=== PATIENT | male | born 1970 | race Caucasian/White ===

== ENCOUNTER 2022-01-27 09:03 | Day surgery (SDC) | payer OTHER, SELFPAY ==
[2022-01-27] VITALS (19 sets, daily range): BP systolic 116–149; BP diastolic 77–100; PULSE 64–98; RESP 16; TEMP 36–36.7; O2SAT 91–99; BMI 39.3
[2022-01-27] MEDS: fentaNYL 100 MCG/2 ML inj IVP (09:18)
[2022-01-27] MEDS: MIDAZOLAM HCL 1 MG/ML inj IVP (09:18)
[2022-01-27] MEDS: LACTATED RINGERS 1000 ML 1,000 ML 100 ML IV ×2 (09:30→12:21)
--- NOTE | 2022-01-27 09:57 | CRLHL7_ITS ---
For Patients: As a result of the Century Cures Act, medical imaging exams and procedure reports are released immediately into your electronic medical record. You may view this report before your referring provider. If you have questions, please contact your health care provider. INDICATION: Fracture. TECHNIQUE: Intraoperative C-arm fluoroscopy. IMPRESSION: Intraoperative C-arm fluoroscopy was provided. Fluoroscopy time 1 minutes 30 seconds. Four images were captured. Dictated by Cody Hawkins MD @ 01/27/2022 9:12:49 PM (Electronically Signed)
[2022-01-27] MEDS: CEFAZOLIN 2 GM INJ IVP (10:20)
--- NOTE | 2022-01-27 10:34 | W.PM.NB ---
Nerve Block Nerve Block Date Seen: 01/27/22 Type of block requested by surgeon for post-operative analgesia: popliteal Side: left Time out performed: Yes Verification of patient name: Yes Verification of date of : Yes Site marking: site marked Name of person performing procedure: Stas Continuous monitoring Was continuous monitoring of O2 sat, B/P, museum registrar, recorded every 15 minutes?: Yes Procedure Checklist: sterile prep, needles and gloves Ultrasound guided. Images saved: Yes Medications given in 5ml increments after negative aspiration: Ropivicaine %: 0.5 mL: 20 Needle gauge: 22 Patient tolerated procedure well: Yes Additional comments: Needle noted adjacent to nerve Block Charges Block Charge (with Pro Fee): Sciatic Nerve Use of Ultrasound Machine for Block: Yes- US Guidance/pain block
--- NOTE | 2022-01-27 10:35 | W.PM.NB ---
Nerve Block Nerve Block Date Seen: 01/27/22 Type of block requested by surgeon for post-operative analgesia: adductor canal Side: left Time out performed: Yes Verification of patient name: Yes Verification of date of : Yes Site marking: site marked Name of person performing procedure: Stas Continuous monitoring Was continuous monitoring of O2 sat, B/P, equipment monitor phototypesetting, recorded every 15 minutes?: Yes Procedure Checklist: sterile prep, needles and gloves Ultrasound guided. Images saved: Yes Medications given in 5ml increments after negative aspiration: Ropivicaine %: 0.5 mL: 20 Needle gauge: 22 Patient tolerated procedure well: Yes Additional comments: Needle noted adjacent to nerve Block Charges Block Charge (with Pro Fee): Femoral Nerve Use of Ultrasound Machine for Block: Yes- US Guidance/pain block
--- NOTE | 2022-01-27 14:25 | W.ANESCHARGE ---
Anesthesia Charges Start Date/Time Anesthesia Start Date: 01/27/22 Anesthesia Start Time: 10:05 Stop Date/Time Anesthesia Stop Date: 01/27/22 Anesthesia Stop Time: 14:22 Summary Emergency: No
--- NOTE | 2022-01-27 14:36 | W.ANESCHARGE ---
Anesthesia Charges Start Date/Time Anesthesia Start Date: 01/27/22 Anesthesia Start Time: 10:05 Stop Date/Time Anesthesia Stop Date: 01/27/22 Anesthesia Stop Time: 14:22 Summary Emergency: No
[2022-01-27] MEDS: METOCLOPRAMIDE HCL 5 MG/ML INJ 10 MG IVP (15:19)
--- NOTE | 2022-01-27 16:23 | P.GSOP_ITS ---
Operative Note Date of procedure: 01/27/22 Type of Procedure: 1. ORIF trimalleolar ankle fracture left 2. ORIF anterior lateral distal tibial plafond fracture left 3. open debridement anterior lateral talar dome fracture left 4. ORIF distal ankle syndesmosis disruption left Procedure Description: After discussing the risks and benefits of the procedure, the patient signed informed consent.? The operative site was marked. Anesthesia performed a preoperative popliteal and adductor block and the patient was brought to the operating room and placed on the operating table in supine position.? Care was taken to pad the patient's pressure points.?? The patient was then [intubated/given sedation] by anesthesia.?? The operative site was then prepped and draped in the usual sterile fashion.? A thigh tourniquet was placed. A time-out was then performed. left limb was exsanguinated and the tourniquet. Due to the severity of the lateral injury I decided to start medially to give us a stable area to work from. Linear incisions made over the medial malleolus. Incision was carried down through skin and subcutaneous tissues. Significant amount of periosteal stripping was noted at the fracture site. Periosteum reflected away from the fracture site. Hematoma was debrided from the fracture. The fracture fragment was displaced distally and the medial talar dome inspected and no lesions noted. Reduction forceps was then applied pulling the medial malleolar fragment into anatomic alignment. This appeared to be perfect both under direct visualization and under C-arm. A guide pin was placed anterior to the reduction forceps and driven across the fracture site taking great care to avoid the articular surface. Second guide pin was placed posterior and parallel to the 1st. C-arm confirmed excellent position. 55 mm 4.0 cannulated long threaded screws were placed using standard technique. Excellent compression obtained. Reduction forceps removed and the fracture remained anatomically aligned. We thoroughly irrigated with normal sterile saline. The fascia and periosteum repaired with 3-0 and 4-0 Vicryl and the skin closed with herberth. A linear incision was then made laterally over the fibula. Incision was placed slightly anterior to allow visualization of talar fragment and distal tibial fragment. Incision was carried down through skin subcutaneous tissues. Periosteum was incised and reflected away from the distal fibula. Multiple fracture fragments were noted. There were 3 main fracture fragments that would support fixation. There was a distal anterior, a posterior lateral and the proximal fibula. There was also a distal posterior fragment and 2 anterior mid shaft fragments. Additionally there was 1 intra-articular fragment that was removed. We started by identifying the anterior lateral distal tibia fracture fragment. Periosteum and hematoma were stripped away from the fragment. the fracture fragment was rotated into alignment and fixated with a 2.4 mm cannulated screw. Anatomic alignment of the articular surface was directly visualized. Next I inspected the talar dome and identified the fracture fragment from the anterior lateral aspect. It was quite distal and was too small to support fixation. The fragment was removed in total. the joint was irrigated with normal sterile saline. next we used a curette and suction to remove the hematoma from the fibular fracture fragments. Using reduction forceps central posterior lateral fracture fragment was reduced to the proximal fibula. This appeared perfectly anatomic and a 2.7 mm cortical screw was placed across the fracture using standard lag technique. with removal of the reduction clamp the fracture remained anatomic. The distal anterior fragment was then reduced onto the lateral posterior fragment. C-arm confirmed anatomic alignment. A 2.7 mm cortical screws placed from anterior distal to posterior proximal increase the 2 fragments together. C-arm images confirmed roman catholic of the fibula anatomic alignment and rotation. pre contoured distal fibular plate was then applied laterally. The proximal plate was anchored to the bone with a 3.5mm nonlocking screw in the slotted portion of the plate. with the plate anchored to bone three 2.7 mm locking screws were placed distally to incorporate all distal fracture fragments. a 2.7 mm nonlocking screw was placed in the distal most screw hole to incorporate an additional fracture fragment at the distal fibula. Two additional 3.5 mm locking screws were placed in the proximal most screw holes. with the fibula now stabilized and anatomic stress views of the syndesmosis were performed with medial clear space gapping. A Arthrex tight rope was then placed using standard technique through the fibular plate into the tibia. With the ankle dorsiflexed the tight rope was cinched tight. Stress views were taken again with no medial clear space widening. 2 mL of cancellous allograft bone was packed into the void in the anterior fibula just proximal to the joint level. All remaining fracture fragments were in anatomic alignment and did not require additional fixation. All wounds were irrigated fully with normal sterile saline. Periosteum and deep fascia were closed with 3-0 Vicryl. subcutaneous tissues reapproximated with 3-0 Vicryl and 4-0 Vicryl. Skin reapproximated with herberth. tourniquet was released prior to closure. All bleeding vessels cauterized. Sterile dressing was then applied. Well-padded [id number] plaster splint applied. The patient was then woken and transported to the recovery area in stable condition. The patient tolerated the procedure well. this fracture was above and beyond normal fractures and required additional time and expertise for fixation. written and verbal postop instructions given. Oxycodone and Vistaril given for pain. He was discharged per Anesthesia. Strict nonweightbearing. Follow up in clinic in 1 week. Implants: Arthrex distal fibula pre contoured locking plate x1. 2.7 mm locking screws x3. 2.7 mm non-locking screw x3. 3.5 mm nonlocking screw x1. 3.5 mm locking screw x2. Arthrex tight rope x1. 4.0 cannulated screws x2. 2.4 mm cannulated screw times 1. Anesthesia: GETA Surgeon: Asaf Gutierrez DPM Estimated blood loss (mL): 20 Condition: stable Disposition: PACU
--- NOTE | 2022-01-27 17:23 | SUR.PHASEII ---
Patient tolerated water and apple juice, patient performed multiple transfers from bed to chair, wheelchair to toilet, toilet to wheelchair and into his personal truck independently upon discharge. Patient voided prior to discharge. Patient and verbally confirmed understanding of discharge instructions and readiness for discharge.
== END 2022-01-27 17:15 | disposition home or self-care (01) ==
PROVIDERS: PCP Family Medicine; Visit Provider Podiatrist
PROC: (CPT 27829; principal; 2022-01-27 10:30)
DX: S82.852A Displaced trimalleolar fracture of left lower leg, initial encounter for closed fracture (principal)
CPT/HCPCS: 27829; 27822; 01480; 64445; 64447; 73610; 76000; 76942; C1713; J0690; J1100; J1170; J2250; J2405; J2704; J2765; J2795; J3010; J7120